=== PATIENT | female | born 1975 | race Caucasian/White ===

== ENCOUNTER 2023-03-26 13:19 | Outpatient (CLI) | payer OTHER | END 2023-03-26 13:35 | disposition home or self-care (01) | LOC: SONOGRAMA 13:19 | DX: N93.9 Abnormal uterine and vaginal bleeding, unspecified (principal); D25.9 Leiomyoma of uterus, unspecified; D64.89 Other specified anemias ==

== ENCOUNTER 2023-05-09 09:57 | Outpatient (CLI) | payer OTHER | END 2023-05-09 10:04 | disposition home or self-care (01) | LOC: SONOGRAMA 09:57 | PROVIDERS: ATTEND Internal Medicine Endocrinology, Diabetes & Metabolism | DX: E04.1 Nontoxic single thyroid nodule (principal) ==

== ENCOUNTER 2023-08-27 09:58 | Outpatient (CLI) | payer OTHER | END 2023-08-27 10:01 | disposition home or self-care (01) | LOC: MAMO-SONO 09:58 | PROVIDERS: ATTEND Student in an Organized Health Care Education/Training Program | DX: N60.11 Diffuse cystic mastopathy of right breast (principal); N60.12 Diffuse cystic mastopathy of left breast; Z12.31 Encounter for screening mammogram for malignant neoplasm of breast ==